=== PATIENT | female | born 1965 | race Caucasian/White ===

== ENCOUNTER → 2017-12-29 | Outpatient (REF) | payer OTHER ==
[~2017-12-29] MED LIST: AMOX-559 PO; ATOR40TA24 PO
[2017-12-29 12:52] LABS: PLATELET COUNT, AUTOMATED 254 K/uL (150-450)
== END ==
PROVIDERS: ATTEND Family Medicine
DX: J40 Bronchitis, not specified as acute or chronic (principal)
CPT/HCPCS: 82040; 82247; 82310; 82374; 82435; 82565; 82947; 84075; 84132; 84155; 84295; 84450; 84460; 84520; 85025; 85379